=== PATIENT | female | born 1990 | race Caucasian/White ===

== ENCOUNTER 2019-02-21 16:24 | Outpatient (CLI) | payer SELFPAY ==
[2019-02-21 16:44] LABS: HGB - HEMOGLOBIN 14.3 g/dL (12.0-16.0); MEAN CORPUSCULAR HEMOGLOBIN 30.4 pg (27.0-31.0); MEAN CORPUSCULAR HGB CONC 33.1 g/dL (32.0-36.0); MEAN CORPUSCULAR VOLUME 91.8 fL (81.0-99.0); MEAN PLATELET VOLUME 8.1 fL (7.9-10.8); RED BLOOD COUNT 4.7 10^6/uL (4.20-5.40); WHITE BLOOD COUNT 6.5 x10^3/uL (4.8-10.8)
== END 2019-02-21 16:25 | disposition home or self-care (01) ==
LOC: LAB 16:24
PROVIDERS: ATTEND Registered Nurse
DX: O20.0 Threatened abortion (principal)
CPT/HCPCS: 36415; 84702; 85027; 86900; 86901

== ENCOUNTER 2019-02-22 01:07 | Outpatient (CLI) | payer SELFPAY ==
--- NOTE | 2019-02-22 02:32 | Ultrasound Report ---
Reason: TEST POSITIVE,INTRAUTERINE CONTRACEPTIVE Procedure Date: 02/22/2019 Accession Number: [id number] / [id number] Procedure: US - OB First Trimester CPT Code: FULL RESULT: EXAM: FIRST TRIMESTER OBSTETRIC ULTRASOUND (Less than 11 weeks) EXAM DATE: 02/22/2019 01:24 AM. CLINICAL HISTORY: TEST POSITIVE,INTRAUTERINE CONTRACEPTIVE. LMP: 01/13/2019. COMPARISONS: None. TECHNIQUE: Transabdominal and transvaginal ultrasound examination with static image documentation. CLINICAL DATES: EGA 5 weeks 5 days with ONUR 10/20/2019 based on LMP. ASSESSMENT: Gestational Sac: None visualized. MATERNAL STRUCTURES: Uterus: Anteverted. IUD is present in the endometrial canal. The endometrium measures 8 mm. No gestational sac is identified. The uterus measures 10.4 x 6.5 x 5.0 cm.. Cervix: Closed. Right Ovary/Adnexa: The ovary measures 3.2 x 2.3 x 1.9 cm, volume 7 cc. Unremarkable. Left Ovary/Adnexa: The ovary measures 3.0 x 2.5 x 1.3 cm, volume 5 cc. Unremarkable. Free Fluid: Trace in the cul-de-sac.. Other: None. IMPRESSION: 1. IUD present in the endometrial canal. No evidence of intrauterine or extrauterine gestation at this time. Trace free fluid in the cul-de-sac. Recommend follow-up serial quantitative beta hCG, and rescan as clinically warranted. RENNY The above call report findings were discussed with Campbell Morales by Dr. Reza White at 02:30 AM on 02/22/2019.
== END 2019-02-22 01:08 | disposition home or self-care (01) ==
LOC: DI 01:07
PROVIDERS: ATTEND Registered Nurse
DX: Z32.01 Encounter for pregnancy test, result positive (principal); O26.31 Retained intrauterine contraceptive device in pregnancy, first trimester
CPT/HCPCS: 76801; 76817

== ENCOUNTER 2019-02-23 16:23 | Outpatient (CLI) | payer SELFPAY | END 2019-02-23 16:24 | disposition home or self-care (01) | LOC: LAB 16:23 | PROVIDERS: ATTEND Obstetrics & Gynecology | DX: O26.31 Retained intrauterine contraceptive device in pregnancy, first trimester (principal) | CPT/HCPCS: 36415; 84702 ==

== ENCOUNTER 2019-06-28 11:23 | Outpatient (CLI) | payer OTHER ==
--- NOTE | 2019-06-30 10:07 | Ultrasound Report ---
Reason: TEST POSITIVE Procedure Date: 06/28/2019 Accession Number: [id number] / [id number] Procedure: US - OB First Trimester CPT Code: FULL RESULT: EXAM: LIMITED OBSTETRICAL ULTRASOUND EARLY SECOND TRIMESTER EXAM DATE: 06/28/2019 12:04 PM. CLINICAL HISTORY: test positive. COMPARISON: OB FIRST TRIMESTER 02/22/2019 1:23 AM. TECHNIQUE: Real-time sonographic evaluation of the fetus performed by the gun repair clerk. Multiple customer service representative static images were saved for review. DATING: EGA 14 weeks 4 days with ONUR 12/23/2019 based on LMP. GENERAL EVALUATION [place] . Cardiac activity: 158 bpm. movement: Visualized. Presentation: Variable position. Placenta: Posterior position. No evidence for previa. Amniotic fluid: Subjectively normal. ELLEN 8.1 cm. MVP 2.8 cm. BIOMETRY Bi-Parietal Diameter (BPD): 2.61 cm, 14 weeks 4 days. Head Circumference (HC): 9.8 cm, 14 weeks 4 days. Abdominal Circumference (AC): 8.19 cm, 14 weeks 4 days. Femur Length (FL): 1.47 cm, 14 weeks 2 days. Estimated Weight: Out of range. Estimated gestational age based on current ultrasound biometry, 14 weeks 4 days with an ONUR of 12/23/2019. ANATOMY Limited early anatomy is unremarkable. Recommend returning to the clinic for a complete anatomic study. MATERNAL STRUCTURES Uterus: Unremarkable. Cervix: Long and closed. Right ovary/adnexa: Unremarkable. Left ovary/adnexa: Unremarkable. Free fluid: None. IMPRESSION: 1. [place] live intrauterine with gestational age 14 weeks 4 days based on biometry, this is concordant with dates based upon LMP. 2. size is within expected limits for assigned dating. 3. No anatomic abnormalities seen on this early second trimester ultrasound. Recommend returning to the clinic for a definitive complete anatomic survey. 4. Amniotic fluid index of 8.1 cm. Note: Detailed anatomic survey at 18-22 weeks is recommended for all fetuses evaluated prior to 18 weeks, as some structural abnormalities may be inapparent at earlier gestational ages. RADIA
== END 2019-06-28 11:24 | disposition home or self-care (01) ==
LOC: DI 11:23
PROVIDERS: ATTEND Obstetrics & Gynecology
DX: Z32.01 Encounter for pregnancy test, result positive (principal); Z36.9 Encounter for antenatal screening, unspecified
CPT/HCPCS: 36415; 76801; 81001; 81599; 85025; 86762; 86803; 86850; 86900; 86901; 87340; 87389

== ENCOUNTER 2019-06-28 12:54 | Outpatient (CLI) | payer OTHER ==
[2019-06-28 13:27] LABS: BILIRUBIN,URINE NEGATIVE (NEGATIVE); GLUCOSE, URINE (UA) NEGATIVE (NEGATIVE); KETONES,URINE (UA) NEGATIVE (NEGATIVE); LEUKOCYTE ESTERASE, URINE NEGATIVE (NEGATIVE); NITRITE,URINE NEGATIVE (NEGATIVE); OCCULT BLOOD,URINE NEGATIVE (NEGATIVE); PH,URINE 6.5 PH (5.0-7.5); PROTEIN,URINE NEGATIVE (NEGATIVE); UROBILINOGEN,URINE 0.2 (NORMAL) E.U./dL (NORMAL)
[2019-06-28 13:28] LABS: BASOPHILS % (AUTO) 0.3 %; EOSINOPHILS # (AUTO) 0.2 10^3/uL (0.0-0.7); EOSINOPHILS % (AUTO) 1.5 %; HGB - HEMOGLOBIN 14.3 g/dL (12.0-16.0); LYMPHOCYTES # (AUTO) 1.3 10^3/uL (1.5-3.5); LYMPHOCYTES % (AUTO) 11.2 %; MEAN CORPUSCULAR HEMOGLOBIN 31.4 pg (27.0-31.0); MEAN CORPUSCULAR HGB CONC 34.5 g/dL (32.0-36.0); MEAN CORPUSCULAR VOLUME 90.8 fL (81.0-99.0); MEAN PLATELET VOLUME 9.6 fL (7.9-10.8); MONOCYTES # (AUTO) 0.5 10^3/uL (0.0-1.0); MONOCYTES % (AUTO) 4.4 %; NEUTROPHILS # (AUTO) 9.3 10^3/uL (1.5-6.6); NEUTROPHILS % (AUTO) 82.2 %; PLT - PLATELET COUNT 287 10^3/uL (130-450); RED BLOOD COUNT 4.56 10^6/uL (4.20-5.40); RED CELL DISTRIBUTION WIDTH 13.2 % (12.0-15.0); WHITE BLOOD COUNT 11.3 x10^3/uL (4.8-10.8)
[2019-06-28 13:29] LABS: CLARITY,URINE CLEAR (CLEAR)
[2019-06-28 13:39] LABS: BACTERIA,URINE Rare /HPF (None Seen); RBC,URINE 0-5 /HPF (0-5); SQUAMOUS EPITHELIAL CELL,UR FEW Squamous (<= Few)
[2019-07-01 10:30] LABS: HIV AG/AB 4TH GEN NON-REACTIVE (NON-REACTIVE)
[2019-07-01 13:18] LABS: HEPATITIS B SURFACE ANTIGEN NON-REACTIVE (NON-REACTIVE); HEPATITIS C ANTIBODY NON-REACTIVE (NON-REACTIVE)
== END 2019-06-28 12:55 | disposition home or self-care (01) ==
LOC: LAB 12:54
PROVIDERS: ATTEND Nurse Practitioner Obstetrics & Gynecology
DX: Z36.9 Encounter for antenatal screening, unspecified (principal)
CPT/HCPCS: 36415; 81001; 81599; 85025; 86762; 86803; 86850; 86900; 86901; 87086; 87340; 87389

== ENCOUNTER 2019-07-25 08:00 | Outpatient (CLI) | payer OTHER ==
[2019-07-25 14:42] LABS: MUDS CUTOFF CONCENTRATIONS CUTOFF CONC BELOW:
[2019-07-25 14:57] LABS: AMPHETAMINE SCREEN,URINE NEGATIVE (NEGATIVE); BENZODIAZEPINES SCREEN, URINE NEGATIVE (NEGATIVE); COCAINE SCREEN URINE NEGATIVE (NEGATIVE); METHADONE SCREEN, URINE NEGATIVE (NEGATIVE); METHAMPHETAMINES SCREEN, URINE NEGATIVE (NEGATIVE); OPIATE SCREEN, URINE NEGATIVE (NEGATIVE); OXYCODONE SCREEN, URINE NEGATIVE (NEGATIVE); PROPOXYPHENE SCREEN, URINE NEGATIVE (NEGATIVE); TRICYCLIC ANTIDEPRESSANT,URINE NEGATIVE (NEGATIVE)
[2019-07-25 22:48] LABS: TRICHOMONAS VAGINALIS DNA NEGATIVE (NEGATIVE)
== END 2019-07-25 23:59 | disposition home or self-care (01) ==
LOC: LAB.R 08:00
PROVIDERS: ATTEND Obstetrics & Gynecology
DX: Z34.90 Encounter for supervision of normal pregnancy, unspecified, unspecified trimester (principal)
CPT/HCPCS: 80306; 87491; 87591; 87661

== ENCOUNTER 2019-09-30 09:58 | Outpatient (CLI) | payer OTHER ==
[2019-09-30 19:09] LABS: HGB - HEMOGLOBIN 12.6 g/dL (12.0-16.0); MEAN CORPUSCULAR HEMOGLOBIN 31.3 pg (27.0-31.0); MEAN CORPUSCULAR HGB CONC 31.5 g/dL (32.0-36.0); MEAN CORPUSCULAR VOLUME 99.3 fL (81.0-99.0); MEAN PLATELET VOLUME 9.9 fL (7.9-10.8); RED BLOOD COUNT 4.03 10^6/uL (4.20-5.40); RED CELL DISTRIBUTION WIDTH 13.2 % (12.0-15.0); WHITE BLOOD COUNT 11.2 x10^3/uL (4.8-10.8)
== END 2019-09-30 23:59 | disposition home or self-care (01) ==
LOC: LAB.WCP 09:58
PROVIDERS: ATTEND Nurse Practitioner Obstetrics & Gynecology
DX: Z36.89 Encounter for other specified antenatal screening (principal)
CPT/HCPCS: 36415; 82950; 85027; 86850

== ENCOUNTER 2019-10-31 15:22 | Outpatient (CLI) | payer OTHER ==
[2019-10-31 16:13] VITALS: BP 124/76
[2019-10-31] MEDS ORDERED: BETAMETHASONE 30 MG/5 ML VIAL IM STA (16:13)
[2019-10-31 16:14] LABS: BASOPHILS % (AUTO) 0.3 %; EOSINOPHILS # (AUTO) 0.2 10^3/uL (0.0-0.7); EOSINOPHILS % (AUTO) 1.4 %; HGB - HEMOGLOBIN 12.3 g/dL (12.0-16.0); LYMPHOCYTES # (AUTO) 1.2 10^3/uL (1.5-3.5); LYMPHOCYTES % (AUTO) 9.3 %; MEAN CORPUSCULAR HEMOGLOBIN 32.1 pg (27.0-31.0); MEAN CORPUSCULAR HGB CONC 34.1 g/dL (32.0-36.0); MEAN CORPUSCULAR VOLUME 94.3 fL (81.0-99.0); MEAN PLATELET VOLUME 9.9 fL (7.9-10.8); MONOCYTES # (AUTO) 0.8 10^3/uL (0.0-1.0); MONOCYTES % (AUTO) 6.1 %; NEUTROPHILS # (AUTO) 10.2 10^3/uL (1.5-6.6); NEUTROPHILS % (AUTO) 81.9 %; PLT - PLATELET COUNT 283 10^3/uL (130-450); RED BLOOD COUNT 3.83 10^6/uL (4.20-5.40); RED CELL DISTRIBUTION WIDTH 12.7 % (12.0-15.0); WHITE BLOOD COUNT 12.4 x10^3/uL (4.8-10.8)
[2019-10-31] MEDS ORDERED: LACTATED RINGERS 1,000 ML IV ONE (16:23)
[2019-10-31 16:26] LABS: ALBUMIN 3.5 g/dL (3.2-5.5); ALBUMIN/GLOBULIN RATIO 1.2 (1.0-2.2); BILIRUBIN,TOTAL 0.2 mg/dL (0.2-1.0); CREATININE 0.6 mg/dL (0.4-1.0); TOTAL PROTEIN 6.5 g/dL (6.7-8.2)
[2019-10-31] MEDS ORDERED: LACTATED RINGERS 1,000 ML IV SCH (16:26)
[2019-10-31 16:35] LABS: PT - PROTHROMBIN TIME 11.9 secs (9.9-12.6)
--- NOTE | 2019-10-31 16:42 | HISTORY & PHYSICAL EXAMINATION ---
History of Present Illness - History of Present Illness HPI Comment/Other: CC: bleeding HPI: Had sex yesterday. A bit of brown spotting a few hours afterward but only for a bit. Then abruptly at 14:30 had a "gush" of "lots" of blood, felt like real flow--like a moderate menses. Went to the toilet and had flow into the bowl. Put a diva cup in. Has gone through 2 diva cups at home. Called the clinic and was advised to come in. No contractions but is having a sensation of lower abdominal cramping. No leaking of fluid. Good FM earlier today but in the past hour has not felt much. PMH: neg PSH: wisdom teeth FH: HTN and CVA SH: no t/e/d Allergies: nystatin Meds: PNV OB: . 3 term vaginal deliveries with uncomplicated pregnancies. Early SAB 02/2019 with IUD in situ. IUD was removed following the loss. Uncomplicated this time. ONUR 12/23/18 by LMP c/w 14w US. LMP 03/18. US 06/28/19 14w4d --> 12/23/18. Anatomy scan normal except for "possible" choroid plexus cyst. EFW 48%ile, posterior placenta, normal fluid. No previa on the 14w US either. O+, normal 1h, most recent Hct 40 on 09/30 s/p Tdap and flu vax O: 124/76, HR 99 Appears nervous but well. NAD. Abd soft, nontender, gravid Uterus nontender External female genitalia, vagina, and cervix are normal. Pooled maroon blood present in the fornix. No active cervical bleeding. No LE edema Bedside US: Breech, normal fluid, no previa. Anterior subchorionic hemorrhage measuring 7.7 x 1.4 x 2.3cm Menstrual pad 1/3 saturated after 30min Category [address] [place] Neg A/P: 29yo at 32w4d by LMP c/w 14w US with active subchorinonic hemorrhage, is bleeding steadily but not too heavily for transport. Hemod ynamically stable. No evidence of previa. No trauma history or abnormal heart tones to suggest abruption. --BMZ 12mg IM given --All labs pending including T&S, CBC, CMP, coags, fibrinogen, and K-B. --GBS PCR and culture sent --GC/CT sent. No evidence of vaginitis on exam. -- wellbeing is reassuring. Breech. Category 1 tracing. --Otherwise uncomplicated medical and obstetric history. --Not currently in labor. Will transport to NICU capable facility due to gestational age and increased risk of delivery and PPROM. Discussed with [facility]. Transport accepted by Dr. Starkey OB at [facility]. Exam - Vital Signs Vital Signs: Vital Signs x48h Temp Pulse Resp BP Pulse Ox 10/31/19 15:45 98.1 F 112 H 18 124/76 99 Conclusion/Plan - Lab Results Fish Bones: 10/31/19 16:04 10/31/19 16:04
[2019-10-31 16:48] LABS: PARTIAL THROMBOPLASTIN TIME 27.3 secs (24.9-33.3)
--- NOTE | 2019-10-31 17:41 | Ultrasound Report ---
Reason: vaginal bleeding, at bedside Procedure Date: 10/31/2019 Accession Number: [id number] / [id number] Procedure: US - OB Limited CPT Code: Final Report FULL RESULT: EXAM: LIMITED OBSTETRICAL ULTRASOUND EXAM DATE: 10/31/2019 04:25 PM. CLINICAL HISTORY: Vaginal bleeding, at bedside. COMPARISON: OB DETAILED EVAL 08/02/2019 2:47 PM. 06/28/2019 first trimester ultrasound. TECHNIQUE: Real-time sonographic evaluation of the fetus performed by the evaluation specialist. Multiple inbound call center representative static images were saved for review. Additional transvaginal imaging to more accurately evaluate cervical length/placental position/etc. DATING: Established EGA 32 weeks 3 days with ONUR December 23, 2019. Based on first trimester ultrasound which was concordant with dates from LMP. GENERAL EVALUATION [place] . Cardiac activity: 153 bpm. movement: Visualized. Presentation: Transverse maternal left Placenta: Posterior and fundal. Near but separate from the main placenta are 2 small masses along the uterus wall with similar echogenicity as the placenta. May be succenturiate lobe(s). There is some vascularity present. Amniotic fluid: Volume appears normal, but not measured. Dependent, in the lower uterine segment, between the placenta and cervix, there is a small amount of slightly echogenic fluid. IMPRESSION: 1. [place] live intrauterine with gestational age 32 weeks and 3 days based on established ONUR of 12/23/2019. 2. No evidence of placenta previa as the placenta is posterior and fundal, as was seen on the anatomic survey. 2 small masses along the uterine wall which appear separate from the main placenta may be succenturiate lobes. 3. A small amount of slightly echogenic dependent fluid in the lower uterine segment. The cervix measured 4.1 cm and was closed. RADIA
[2019-10-31 21:37] LABS: TRICHOMONAS VAGINALIS DNA NEGATIVE (NEGATIVE)
== END 2019-10-31 17:49 | disposition short-term general hospital (02) ==
LOC: WFO 15:22 → FBP 15:23 → WFO 17:49
PROVIDERS: ATTEND Obstetrics & Gynecology
DX: O46.93 Antepartum hemorrhage, unspecified, third trimester (principal); O32.1XX0 Maternal care for breech presentation, not applicable or unspecified; Z3A.32 32 weeks gestation of pregnancy
CPT/HCPCS: 36415; 76815; 80053; 81599; 85025; 85384; 85610; 85730; 86850; 86900; 86901; 87081; 87491; 87591; 87661; 87797; 96372; 99214; J7120